=== PATIENT | male | born 1955 | race Caucasian/White ===

== ENCOUNTER 2023-06-18 16:40 | Inpatient (IN) | payer MEDICARE, MEDICAID ==
[2023-06-18] VITALS (8 sets, daily range): BP systolic 86–94; BP diastolic 48–64; TEMP 97.2; O2SAT 87–96
[~2023-06-18] VITALS: Ht 172.7 cm; Wt 86.2 kg
[2023-06-18] MEDS: VANCOMYCIN 1 GM in IV D5W 250 ML IV ONE (17:00)
[2023-06-18 17:04] LABS: BASOPHILS # (AUTO) 0.2 K/uL (0.0-0.2); HEMATOCRIT 34 % (39-51); HEMOGLOBIN 10.4 g/dL (13.5-17.5); LYMPHOCYTES # (AUTO) 0.7 K/uL (0.8-4.8); LYMPHOCYTES % (AUTO) 14.2 % (20.0-44.0); MEAN CORPUSCULAR HEMOGLOBIN 32 PG (26.0-33.0); MEAN CORPUSCULAR HGB CONC 31 g/dl (31.0-36.0); MEAN CORPUSCULAR VOLUME 105 fL (80-96); MONOCYTES # (AUTO) 0.2 K/uL (0.1-1.30); NEUTROPHILS # (AUTO) 4.1 K/uL (1.8-8.9); NEUTROPHILS % (AUTO) 78.3 % (43.0-81.0); PLATELET COUNT (AUTO) 262 K/uL (150-450); RED BLOOD CELL COUNT(AUTO) 3.22 MIL/uL (4.5-6.0); RED CELL DISTRIBUTION WIDTH 20.1 % (11.5-15.0); WHITE BLOOD COUNT (AUTO) 5.2 K/uL (4.3-11.0)
[2023-06-18 17:07] LABS: APPEARANCE,URINE Clear (CLEAR); BILIRUBIN,URINE MODERATE (NEGATIVE); BLOOD, URINE Negative Ery/uL (NEGATIVE); COLOR,URINE YELLOW (YELLOW); KETONES,URINE Trace mg/dL (NEGATIVE); LEUKOCYTE ESTERASE ,URINE Negative (NEGATIVE); NITRITE, URINE Negative (NEGATIVE); PH,URINE 5.5 (5.0-8.0); PROTEIN,URINE 100 mg/dl (NEGATIVE); UGLUCOSE Negative (NEGATIVE)
[2023-06-18 17:11] LABS: BASOPHILS % (AUTO) 0.7 % (0.0-2.0); EOSINOPHILS % (AUTO) 3.8 % (0.0-6.0)
[2023-06-18 17:18] LABS: INR 2.38 (0.91-1.10); PARTIAL THROMBOPLASTIN TIME 37.8 SEC (24.3-34.3); PROTHROMBIN TIME 23.5 SECS (9.2-11.1)
[2023-06-18 17:30] LABS: LACTIC ACID 11.3 mmol/L (0.4-2.0)
[2023-06-18] MEDS: NOREPINEPHRINE 8 MG in IV D5W 242 ML IV PRN ×2 (17:30→21:16)
[2023-06-18 17:37] LABS: ALANINE AMINOTRANSFERASE 27 U/L (12-78); ALBUMIN 1.8 g/dL (3.4-5.0); ALKALINE PHOSPHATASE 390 U/L (46-116); ASPARTATE AMINOTRANSFERASE 129 U/L (15-37); BILIRUBIN,DIRECT 3.1 mg/dL (0.0-0.2); BILIRUBIN,TOTAL 3.9 mg/dL (0.2-1.0); CALCIUM, SERUM 9.2 mg/dL (8.5-10.1); CARBON DIOXIDE 28 mmol/L (21-32); CHLORIDE 103 mmol/L (98-107); CREATININE 1.8 mg/dL (0.6-1.3); GLUCOSE 249 mg/dL (74-106); POTASSIUM 5.9 mmol/L (3.5-5.1); SODIUM SERUM 139 mmol/L (136-145); TOTAL PROTEIN, SERUM 6.6 g/dL (6.4-8.2)
[2023-06-18 17:39] LABS: UREA NITROGEN, BLOOD 86 mg/dL (7-18)
[2023-06-18] MEDS ORDERED: CALCIUM PO (17:41)
[2023-06-18] MEDS ORDERED: FURO20TA4 PO (17:41)
[2023-06-18] MEDS ORDERED: GUAI100S34 PO (17:41)
[2023-06-18] MEDS ORDERED: ESCI5TAB PO (17:41)
[2023-06-18] MEDS ORDERED: CARB1TAB21 PO (17:41)
[2023-06-18] MEDS ORDERED: MAGN400O6 PO (17:41)
[2023-06-18] MEDS ORDERED: INSU100I30 SQ (17:41)
[2023-06-18] MEDS ORDERED: VITAMIN E PO (17:41)
[2023-06-18] MEDS ORDERED: PRAM1TAB7 PO (17:41)
[2023-06-18] MEDS ORDERED: IPRA42SP BNOSTRILS (17:41)
[2023-06-18] MEDS ORDERED: CARV6.252 PO (17:41)
[2023-06-18] MEDS ORDERED: IPRA3AMP23 IH (17:41)
[2023-06-18] MEDS ORDERED: INSU100I40 SQ (17:41)
[2023-06-18] MEDS ORDERED: ROSU20TA2 PO (17:41)
[2023-06-18] MEDS ORDERED: CHOL100043 PO (17:41)
[2023-06-18] MEDS ORDERED: VITA1TAB20 PO (17:41)
[2023-06-18] MEDS ORDERED: APIX5TAB PO (17:41)
[2023-06-18] MEDS ORDERED: OCTREOTIDE 100 MCG/ML VIAL ONE (17:46)
[2023-06-18] MEDS ORDERED: PANTOPRAZOLE 40 MG VIAL ONE (17:46)
[2023-06-18] MEDS: IV NS 0.9% 1,000 ML BAG IV ONE (17:57)
[2023-06-18] MEDS: PIPERACILLIN /TAZOBACTAM 3.375 G in IV D5W 50 ML IV ONE (17:57)
[2023-06-18] MEDS: PANTOPRAZOLE 40 MG VIAL IV ONE (17:58)
[2023-06-18] MEDS: OCTREOTIDE 50 MCG/ML AMPUL IV ONE (17:58)
[2023-06-18] MEDS ORDERED: NOREPINEPHRINE 8 MG in IV D5W 242 ML IV PRN (18:00)
[2023-06-18] MEDS ORDERED: ONDANSETRON HCL/PF 4 MG/2 ML VIAL IVP PRN (18:30)
[2023-06-18] MEDS ORDERED: Z GUARD REMEDY 4 OZ OINT TP PRN (18:30)
[2023-06-18] MEDS: PANTOPRAZOLE 40 MG VIAL IV SCH (18:30)
[2023-06-18] MEDS ORDERED: MORPHINE SULFATE INJ 2 MG/ML DISP.SYRIN IV PRN (18:30)
[2023-06-18] MEDS ORDERED: IPRATROPIUM NEB FS 0.5 MG/2.5 ML AMPUL.NEB NEB PRN (19:00)
[2023-06-18] MEDS ORDERED: ALBUTEROL FS 2.5 MG/3 ML VIAL.NEB NEB PRN (19:00)
[2023-06-18 19:59] LABS: ABG BASE EXCESS -7.5 mmol/L; ABG OXYGEN SATURATION 90.1 % (92.0-98.5); ABG PCO2 44.4 mmHg (35.0-45.0); ABG PH 7.256 (7.350-7.450); ABG PO2 69.9 mmHg (75.0-100.0); ABG TOTAL HEMOGLOBIN 11.3 G/dL (13.5-18.0); COHb 0.3 % (0.5-1.5); MetHb 0.4 % (0.0-1.5); O2Hb 89.5 % (94.0-97.0); PEEP,BG 5 cm H2O; SITE, ABG Right Brachial; VENT MODE, BG AC 18 550 100% +5; VT, ABG 550 mL
[2023-06-18] MEDS ORDERED: NOREPINEPHRINE 8MG/250ML RTU 250 ML IV ONE (20:51)
[2023-06-18] MEDS: PROPOFOL 100 ML IV PRN (21:14)
[2023-06-18] MEDS: HYDROCORTISONE SOD SUCCINATE 100 MG/2 ML VIAL IV SCH (21:16)
[2023-06-18] MEDS: IV NS 0.9% 1,000 ML IV PRN (21:17)
[2023-06-18] MEDS: CEFEPIME 2 GM in IV D5W 100 ML IV SCH (21:21)
[2023-06-19] VITALS (61 sets, daily range): BP systolic 82–140; BP diastolic 41–70; TEMP 97.4–98.5; O2SAT 94–100
[2023-06-19] MEDS: BLOOD SUGAR DIAGNOSTIC 1 EACH STRIP IN SCH (00:12)
[2023-06-19] MEDS: INSULIN REGULAR, HUMAN 100 UNIT/ML 3 ML VIAL SQ PRN (00:15)
[2023-06-19 00:31] LABS: CALCIUM, SERUM 7.9 mg/dL (8.5-10.1); CREATININE 2.1 mg/dL (0.6-1.3); POTASSIUM 5.3 mmol/L (3.5-5.1)
[2023-06-19 05:00] LABS: BASOPHILS % (AUTO) 0.2 % (0.0-2.0); EOSINOPHILS % (AUTO) 0.1 % (0.0-6.0); HEMATOCRIT 31 % (39-51); HEMOGLOBIN 9.5 g/dL (13.5-17.5); LYMPHOCYTES # (AUTO) 1.2 K/uL (0.8-4.8); LYMPHOCYTES % (AUTO) 7.4 % (20.0-44.0); MEAN CORPUSCULAR HEMOGLOBIN 32 PG (26.0-33.0); MEAN CORPUSCULAR HGB CONC 31 g/dl (31.0-36.0); MEAN CORPUSCULAR VOLUME 105 fL (80-96); MONOCYTES # (AUTO) 1.3 K/uL (0.1-1.30); MONOCYTES % (AUTO) 8.1 % (2.0-12.0); NEUTROPHILS # (AUTO) 13.7 K/uL (1.8-8.9); NEUTROPHILS % (AUTO) 84.2 % (43.0-81.0); PLATELET COUNT (AUTO) 226 K/uL (150-450); RED BLOOD CELL COUNT(AUTO) 2.95 MIL/uL (4.5-6.0); RED CELL DISTRIBUTION WIDTH 21.9 % (11.5-15.0); WHITE BLOOD COUNT (AUTO) 16.2 K/uL (4.3-11.0)
[2023-06-19 05:19] LABS: CALCIUM, SERUM 8.5 mg/dL (8.5-10.1); CREATININE 2.3 mg/dL (0.6-1.3); MAGNESIUM 2.5 mg/dL (1.8-2.4); PHOSPHORUS 4.9 mg/dL (2.5-4.9); POTASSIUM 5.9 mmol/L (3.5-5.1)
[2023-06-19 05:22] LABS: THYROID STIMULATING HORMONE 0.96 uIU/mL (0.358-3.74)
[2023-06-19 08:26] LABS: ABG BASE EXCESS -9.5 mmol/L; ABG OXYGEN SATURATION 93.9 % (92.0-98.5); ABG PCO2 50.2 mmHg (35.0-45.0); ABG PH 7.186 (7.350-7.450); ABG PO2 82.4 mmHg (75.0-100.0); ABG TOTAL HEMOGLOBIN 10.7 G/dL (13.5-18.0); AaDO2 435.3 mmHg; COHb 0.3 % (0.5-1.5); MetHb 0.3 % (0.0-1.5); O2Hb 93.3 % (94.0-97.0); SITE, ABG Left Radial; VENT MODE, BG AC 18 550 80% +5
[2023-06-19] MEDS: INSULIN REGULAR, HUMAN 100 UNIT/ML 3 ML VIAL IV ONE (08:41)
[2023-06-19] MEDS: DEXTROSE 50%-WATER 50 ML DISP.SYRIN IVP ONE (08:41)
[2023-06-19] MEDS: NOREPINEPHRINE 32 MG in IV NS 0.9% 218 ML IV PRN (10:13)
[2023-06-19 15:55] LABS: BASOPHILS # (AUTO) 0.1 K/uL (0.0-0.2); BASOPHILS % (AUTO) 0.4 % (0.0-2.0); EOSINOPHILS % (AUTO) 0.1 % (0.0-6.0); HEMATOCRIT 31 % (39-51); HEMOGLOBIN 9.8 g/dL (13.5-17.5); LYMPHOCYTES # (AUTO) 1.4 K/uL (0.8-4.8); LYMPHOCYTES % (AUTO) 6.2 % (20.0-44.0); MEAN CORPUSCULAR HEMOGLOBIN 33 PG (26.0-33.0); MEAN CORPUSCULAR HGB CONC 32 g/dl (31.0-36.0); MEAN CORPUSCULAR VOLUME 102 fL (80-96); MONOCYTES # (AUTO) 1.5 K/uL (0.1-1.30); MONOCYTES % (AUTO) 6.5 % (2.0-12.0); NEUTROPHILS % (AUTO) 86.8 % (43.0-81.0); PLATELET COUNT (AUTO) 216 K/uL (150-450); RED CELL DISTRIBUTION WIDTH 21.2 % (11.5-15.0)
[2023-06-19 16:37] LABS: ALBUMIN 1.6 g/dL (3.4-5.0); BILIRUBIN,TOTAL 4.5 mg/dL (0.2-1.0); CREATININE 2.6 mg/dL (0.6-1.3); MAGNESIUM 2.6 mg/dL (1.8-2.4); PHOSPHORUS 4.3 mg/dL (2.5-4.9); POTASSIUM 5.5 mmol/L (3.5-5.1); TOTAL PROTEIN, SERUM 5.9 g/dL (6.4-8.2)
[2023-06-19] MEDS ORDERED: VANCOMYCIN HCL 1.25 GM in IV D5W 250 ML IV SCH (17:00)
[2023-06-19 17:01] LABS: CALCIUM, SERUM 8.2 mg/dL (8.5-10.1)
[2023-06-19] MEDS: VANCOMYCIN HCL 1 GM in IV D5W 250 ML IV SCH (17:03)
[2023-06-19] MEDS: PHENYLEPHRINE 100 MG in IV NS 0.9% 240 ML IV PRN (20:21)
[2023-06-19] MEDS: AMIODARONE 150 MG in IV D5W 100 ML IV ONE (20:46)
[2023-06-19] MEDS: AMIODARONE 450 MG in IV D5W 241 ML IV PRN (21:02)
[2023-06-19 21:40] LABS: ANISOCYTOSIS 1+; BAND % (MANUAL) 11 % (0.0-5.0); LYMPHOCYTES % (MANUAL) 5 % (16-48); MONOCYTES % (MANUAL) 2 % (0-11.0); NEUTROPHILS % (MANUAL) 82 (42-76); PLATELET ESTIMATE ADEQUATE
[2023-06-19 21:41] LABS: OVALOCYTES RARE
[2023-06-20] VITALS (96 sets, daily range): BP systolic 71–136; BP diastolic 38–68; TEMP 97.4–97.7; O2SAT 93–100
[2023-06-20 04:43] LABS: BASOPHILS # (AUTO) 0.1 K/uL (0.0-0.2); BASOPHILS % (AUTO) 0.3 % (0.0-2.0); HEMATOCRIT 29 % (39-51); HEMOGLOBIN 8.9 g/dL (13.5-17.5); LYMPHOCYTES # (AUTO) 1.4 K/uL (0.8-4.8); LYMPHOCYTES % (AUTO) 6.1 % (20.0-44.0); MEAN CORPUSCULAR HEMOGLOBIN 32 PG (26.0-33.0); MEAN CORPUSCULAR HGB CONC 31 g/dl (31.0-36.0); MEAN CORPUSCULAR VOLUME 104 fL (80-96); MONOCYTES # (AUTO) 1.6 K/uL (0.1-1.30); MONOCYTES % (AUTO) 7.1 % (2.0-12.0); NEUTROPHILS # (AUTO) 19.4 K/uL (1.8-8.9); NEUTROPHILS % (AUTO) 86.5 % (43.0-81.0); PLATELET COUNT (AUTO) 206 K/uL (150-450); RED BLOOD CELL COUNT(AUTO) 2.75 MIL/uL (4.5-6.0); RED CELL DISTRIBUTION WIDTH 21.3 % (11.5-15.0); WHITE BLOOD COUNT (AUTO) 22.4 K/uL (4.3-11.0)
[2023-06-20 05:02] LABS: CREATINE KINASE, TOTAL 263 U/L (39-308)
[2023-06-20 05:07] LABS: ALANINE AMINOTRANSFERASE 251 U/L (12-78); ALBUMIN 1.5 g/dL (3.4-5.0); ALKALINE PHOSPHATASE 495 U/L (46-116); ASPARTATE AMINOTRANSFERASE > 1000 U/L (15-37); BILIRUBIN,TOTAL 4.9 mg/dL (0.2-1.0); CALCIUM, SERUM 8.1 mg/dL (8.5-10.1); CARBON DIOXIDE 15 mmol/L (21-32); CHLORIDE 102 mmol/L (98-107); CREATININE 3.1 mg/dL (0.6-1.3); GLUCOSE 196 mg/dL (74-106); MAGNESIUM 2.5 mg/dL (1.8-2.4); PHOSPHORUS 5.2 mg/dL (2.5-4.9); POTASSIUM 5.7 mmol/L (3.5-5.1); SODIUM SERUM 135 mmol/L (136-145); TOTAL PROTEIN, SERUM 5.8 g/dL (6.4-8.2)
[2023-06-20 05:08] LABS: UREA NITROGEN, BLOOD 95 mg/dL (7-18)
[2023-06-20 05:39] LABS: BAND % (MANUAL) 3 % (0.0-5.0); LYMPHOCYTES % (MANUAL) 6 % (16-48); MONOCYTES % (MANUAL) 6 % (0-11.0); NEUTROPHILS % (MANUAL) 85 (42-76)
[2023-06-20 05:40] LABS: ANISOCYTOSIS 1+; PLATELET ESTIMATE ADEQUATE
[2023-06-20 09:02] LABS: ABG BASE EXCESS -14.4 mmol/L; ABG OXYGEN SATURATION 94.6 % (92.0-98.5); ABG PH 7.256 (7.350-7.450); ABG PO2 86.5 mmHg (75.0-100.0); ABG TOTAL HEMOGLOBIN 9.6 G/dL (13.5-18.0); AaDO2 232.4 mmHg; COHb 0.3 % (0.5-1.5); MetHb 0.3 % (0.0-1.5); PEEP,BG 5 cm H2O; SITE, ABG Right Radial; VENT MODE, BG AC @ 50%; VT, ABG 575 mL
[2023-06-20] MEDS: HYDROCORTISONE SOD SUCCINATE 100 MG/2 ML VIAL IV SCH (10:20)
[2023-06-20] MEDS ORDERED: D5W IV SCH (11:30)
[2023-06-20] MEDS ORDERED: VANCOMYCIN IV SCH (11:30)
[2023-06-20] MEDS: D5W IV SCH (17:20)
[2023-06-20] MEDS: VANCOMYCIN IV SCH (17:20)
[2023-06-20 19:57] LABS: CREATININE, URINE 48.9 MG/DL (30.0-125.0)
[2023-06-20 19:58] LABS: BILIRUBIN,URINE 1+ (NEGATIVE); BLOOD, URINE 3+ Ery/uL (NEGATIVE); COLOR,URINE YELLOW (YELLOW); KETONES,URINE TRACE mg/dL (NEGATIVE); LEUKOCYTE ESTERASE ,URINE TRACE (NEGATIVE); NITRITE, URINE NEGATIVE (NEGATIVE); PH,URINE 5.5 (5.0-8.0); PROTEIN,URINE 2+ mg/dl (NEGATIVE); UGLUCOSE NEGATIVE (NEGATIVE)
[2023-06-20 20:00] LABS: APPEARANCE,URINE CLOUDY (CLEAR)
[2023-06-20 20:15] LABS: COARSE GRANULAR CASTS,URINE Many /LPF (None Seen); RBC,URINE 51-80 /HPF (0-2)
[2023-06-20 20:16] LABS: ADD URINE CULTURE YES; BACTERIA,URINE RARE /HPF (None Seen); SQUAMOUS EPITHELIAL CELL,UR 0-2 /HPF (None Seen)
[2023-06-20 20:17] LABS: YEAST,URINE Moderate /HPF (None Seen)
[2023-06-20 20:27] LABS: EOSINOPHIL,URINE RARE
[2023-06-21] VITALS (99 sets, daily range): BP systolic 76–133; BP diastolic 36–106; TEMP 97.4–97.8; O2SAT 85–100
[2023-06-21 05:08] LABS: BASOPHILS # (AUTO) 0.1 K/uL (0.0-0.2); BASOPHILS % (AUTO) 0.3 % (0.0-2.0); EOSINOPHILS # (AUTO) 0.3 K/uL (0.0-0.7); EOSINOPHILS % (AUTO) 1.1 % (0.0-6.0); HEMATOCRIT 25 % (39-51); LYMPHOCYTES # (AUTO) 0.8 K/uL (0.8-4.8); LYMPHOCYTES % (AUTO) 3.5 % (20.0-44.0); MEAN CORPUSCULAR HEMOGLOBIN 33 PG (26.0-33.0); MEAN CORPUSCULAR HGB CONC 31 g/dl (31.0-36.0); MEAN CORPUSCULAR VOLUME 104 fL (80-96); MONOCYTES % (AUTO) 4.2 % (2.0-12.0); NEUTROPHILS % (AUTO) 90.9 % (43.0-81.0); PLATELET COUNT (AUTO) 156 K/uL (150-450); RED BLOOD CELL COUNT(AUTO) 2.46 MIL/uL (4.5-6.0); RED CELL DISTRIBUTION WIDTH 21.9 % (11.5-15.0); WHITE BLOOD COUNT (AUTO) 24.1 K/uL (4.3-11.0)
[2023-06-21 05:35] LABS: OCCULT BLOOD STOOL POSITIVE (NEGATIVE)
[2023-06-21 08:05] LABS: CALCIUM, SERUM 7.2 mg/dL (8.5-10.1); CREATININE 3.4 mg/dL (0.6-1.3); POTASSIUM 5.3 mmol/L (3.5-5.1)
[2023-06-21 09:07] LABS: ABG BASE EXCESS -14.2 mmol/L; ABG OXYGEN SATURATION 95.1 % (92.0-98.5); ABG PCO2 28.5 mmHg (35.0-45.0); ABG PH 7.238 (7.350-7.450); ABG PO2 86.7 mmHg (75.0-100.0); ABG TOTAL HEMOGLOBIN 8.6 G/dL (13.5-18.0); AaDO2 237.7 mmHg; COHb 0.5 % (0.5-1.5); MetHb 0.1 % (0.0-1.5); O2Hb 94.5 % (94.0-97.0); SITE, ABG Left Brachial; VENT MODE, BG AC 24 575 50% +5
[2023-06-21] MEDS ORDERED: VANCOMYCIN 500 MG in IV D5W 100 ML IV PRN (11:00)
[2023-06-21] MEDS ORDERED: TPN/PPN PER PHARMACY IV PRN (14:30)
[2023-06-21] MEDS: PPN BAG #1 IV SCH (15:30)
[2023-06-21] MEDS: NOREPINEPHRINE 32 MG in IV NS 0.9% 242 ML IV PRN (16:15)
[2023-06-21] MEDS: IV NS 0.9% 1,000 ML IV PRN (19:09)
[2023-06-21] MEDS: CEFEPIME 1 GM in IV D5W 50 ML IV SCH (21:02)
[2023-06-21] MEDS ORDERED: MEROPENEM 500MG/NS 50 ML PB IV ONE (22:43)
[2023-06-21] MEDS: MEROPENEM 500 MG in IV NS 0.9% 50 ML IV SCH (22:44)
[2023-06-21] MEDS: DEXTROSE 50%-WATER 50 ML DISP.SYRIN IV PRN (23:29)
[2023-06-22] VITALS (49 sets, daily range): BP systolic 30–102; BP diastolic 13–79; TEMP 97–97.7; O2SAT 47–100
[2023-06-22] MEDS ORDERED: VASOPRESSIN INJ 20 UNIT/ML VIAL ONE (01:08)
[2023-06-22] MEDS: VASOPRESSIN INJ 40 UNIT in IV NS 0.9% 38 ML IV PRN (01:14)
[2023-06-22] MEDS ORDERED: MEROPENEM 500 MG in IV NS 0.9% 50 ML IV SCH ×2 (01:30→09:00)
[2023-06-22 05:16] LABS: CALCIUM, SERUM 6.6 mg/dL (8.5-10.1); CREATININE 3.6 mg/dL (0.6-1.3); MAGNESIUM 2.6 mg/dL (1.8-2.4); POTASSIUM 6.1 mmol/L (3.5-5.1)
[2023-06-22 05:25] LABS: PHOSPHORUS 8.4 mg/dL (2.5-4.9)
[2023-06-22 07:10] LABS: BASOPHILS # (AUTO) 0.1 K/uL (0.0-0.2); BASOPHILS % (AUTO) 0.6 % (0.0-2.0); EOSINOPHILS # (AUTO) 0.5 K/uL (0.0-0.7); EOSINOPHILS % (AUTO) 2.6 % (0.0-6.0); LYMPHOCYTES # (AUTO) 2.3 K/uL (0.8-4.8); LYMPHOCYTES % (AUTO) 12.2 % (20.0-44.0); MEAN CORPUSCULAR HEMOGLOBIN 37 PG (26.0-33.0); MEAN CORPUSCULAR HGB CONC 28 g/dl (31.0-36.0); MEAN CORPUSCULAR VOLUME 131 fL (80-96); MONOCYTES % (AUTO) 5.2 % (2.0-12.0); NEUTROPHILS % (AUTO) 79.4 % (43.0-81.0); PLATELET COUNT (AUTO) 80 K/uL (150-450); RED CELL DISTRIBUTION WIDTH 23.7 % (11.5-15.0); WHITE BLOOD COUNT (AUTO) 18.9 K/uL (4.3-11.0)
[2023-06-22 07:13] LABS: HEMATOCRIT 18 % (39-51); HEMOGLOBIN 5.1 g/dL (13.5-17.5)
[2023-06-22 08:18] LABS: ANISOCYTOSIS 1+; BAND % (MANUAL) 1 % (0.0-5.0); BASOPHILS % (MANUAL) 0 % (0.0-2.0); EOSINOPHILS % (MANUAL) 1 % (0-4); HYPOCHROMASIA 1+; LYMPHOCYTES % (MANUAL) 11 % (16-48); MONOCYTES % (MANUAL) 4 % (0-11.0); NEUTROPHILS % (MANUAL) 83 (42-76); PLATELET ESTIMATE DECREASED
[2023-06-22 14:07] LABS: *SPE A/G RATIO 0.6 (0.7-1.7); *SPE ALBUMIN 2.1 g/dL (2.9-4.4); *SPE ALPHA-1-GLOBULIN 0.3 g/dL (0.0-0.4); *SPE ALPHA-2-GLOBULIN 0.3 g/dL (0.4-1.0); *SPE BETA GLOBULIN 0.9 g/dL (0.7-1.3); *SPE GLOBULIN, TOTAL 3.4 g/dL (2.2-3.9); *SPE M-SPIKE Not Observed g/dL (Not Observed); *SPE PROTEIN TOTAL 5.5 g/dL (6.0-8.5); *SPEGAMMA GLOBULIN 1.8 g/dL (0.4-1.8)
[2023-06-23 01:12] LABS: PTH, INTACT 65 pg/mL (15-65)
[2023-06-23 02:06] LABS: HEPATITIS B SURFACE AB Non Reactive (.)
== END 2023-06-22 11:13 | DRG 871 ==
LOC: ER 16:47 → ICU 19:43
PROVIDERS: ADMIT Nurse Practitioner Acute Care; ATTEND Internal Medicine
PROC: 5A1945Z Respiratory Ventilation, 24-96 Consecutive Hours (ICD-10-PCS; principal; 2023-06-18)
PROC: 0BH17EZ Insertion of Endotracheal Airway into Trachea, Via Natural or Artificial Opening (ICD-10-PCS; 2023-06-18)
PROC: 30233N1 Transfusion of Nonautologous Red Blood Cells into Peripheral Vein, Percutaneous Approach (ICD-10-PCS; 2023-06-18)
PROC: 06HN33Z Insertion of Infusion Device into Left Femoral Vein, Percutaneous Approach (ICD-10-PCS; 2023-06-20)
PROC: B54CZZA Ultrasonography of Left Lower Extremity Veins, Guidance (ICD-10-PCS; 2023-06-20)
DX: A41.9 Sepsis, unspecified organism (principal); E43 Unspecified severe protein-calorie malnutrition; G92.8 Other toxic encephalopathy; J96.01 Acute respiratory failure with hypoxia; N17.0 Acute kidney failure with tubular necrosis; R65.21 Severe sepsis with septic shock; J15.69 Pneumonia due to other Gram-negative bacteria; J96.02 Acute respiratory failure with hypercapnia; J69.0 Pneumonitis due to inhalation of food and vomit; I13.0 Hypertensive heart and chronic kidney disease with heart failure and stage 1 through stage 4 chronic kidney disease, or unspecified chronic kidney disease; I50.32 Chronic diastolic (congestive) heart failure; C18.9 Malignant neoplasm of colon, unspecified; C78.7 Secondary malignant neoplasm of liver and intrahepatic bile duct; C78.00 Secondary malignant neoplasm of unspecified lung; E87.20 Acidosis, unspecified; I69.354 Hemiplegia and hemiparesis following cerebral infarction affecting left non-dominant side; K92.2 Gastrointestinal hemorrhage, unspecified; D68.59 Other primary thrombophilia; E87.1 Hypo-osmolality and hyponatremia; R18.8 Other ascites; Z66 Do not resuscitate; E78.5 Hyperlipidemia, unspecified; N18.9 Chronic kidney disease, unspecified; Z79.890 Hormone replacement therapy; Z98.890 Other specified postprocedural states; G20.A1 Parkinson's disease without dyskinesia, without mention of fluctuations; Z86.718 Personal history of other venous thrombosis and embolism; F32.9 Major depressive disorder, single episode, unspecified; D53.9 Nutritional anemia, unspecified; Z79.4 Long term (current) use of insulin; Z79.51 Long term (current) use of inhaled steroids; Z79.01 Long term (current) use of anticoagulants; Z79.899 Other long term (current) drug therapy; Z74.09 Other reduced mobility; E11.22 Type 2 diabetes mellitus with diabetic chronic kidney disease; E88.09 Other disorders of plasma-protein metabolism, not elsewhere classified; E87.5 Hyperkalemia; I48.91 Unspecified atrial fibrillation; K72.90 Hepatic failure, unspecified without coma; K74.60 Unspecified cirrhosis of liver; Y95 Nosocomial condition
CPT/HCPCS: 31720; 36415; 36600; 71045-TC; 76770-TC; 80048-TC; 80053-TC; 80061-TC; 80076-TC; 80202-TC; 81001; 82140-TC; 82272-TC; 82533; 82550-TC; 82570-TC; 82803-TC; 82962-TC; 83605-TC; 83735-TC; 83970; 84100-TC; 84155; 84165; 84300-TC; 84443-TC; 84478-TC; 84484-TC; 85025-TC; 85730-TC; 86706; 86850-TC; 87040-TC; 87081-TC; 87086-TC; 87340; 90935-TC; 93307-TC; 94002-TC; 94003-TC; 94640-TC; 94799-TC; 99082-TC; A4223; C9113; G0378; J0282; J0692; J1720; J1815; J2185; J2354; J2543; J3370; J3371; J3490; J7030; J7040; J7050; J7060; P9016